=== PATIENT | male | born 1940 | race Caucasian/White ===

== ENCOUNTER → 2018-12-09 | Outpatient (CLI) | payer MEDICARE, BC ==
--- NOTE | 2018-12-09 10:28 | XR ---
EXAMINATION TYPE: XR shoulder complete BILAT DATE OF EXAM: 12/09/2018 CLINICAL HISTORY: pain TECHNIQUE: Three views of the lateral shoulder are obtained. COMPARISON: None FINDINGS: There is no acute fracture/dislocation evident. The acromioclavicular and glenohumeral diane int spaces appear mildly narrowed bilaterally.. The visualized ribs are intact and unremarkable. IMPRESSION: 1. There is no acute fracture or dislocation. ICD 10 NO FRACTURE, INITIAL EVALUATION
== END | disposition home or self-care (01) ==
LOC: RADXRMAIN 09:55
PROVIDERS: ATTEND Family Medicine
DX: M75.101 Unspecified rotator cuff tear or rupture of right shoulder, not specified as traumatic (principal)